=== PATIENT | male | born 1955 | race Caucasian/White ===

== ENCOUNTER 2016-02-22 09:12 | Outpatient (CLI) | payer BC, OTHER | END 2016-02-22 09:13 | disposition home or self-care (01) | DX: G47.30 Sleep apnea, unspecified (principal); G47.00 Insomnia, unspecified ==

== ENCOUNTER 2016-03-29 11:58 | Outpatient (CLI) | payer BC, OTHER | END 2016-03-29 11:59 | disposition home or self-care (01) | DX: E11.65 Type 2 diabetes mellitus with hyperglycemia (principal); Z12.5 Encounter for screening for malignant neoplasm of prostate; I26.99 Other pulmonary embolism without acute cor pulmonale ==

== ENCOUNTER 2016-08-01 08:19 | Outpatient (CLI) | payer BC, OTHER ==
[2016-08-01 13:14] LABS: CALCIUM 9.5 mg/dL (8.5-10.3); POTASSIUM 4.3 mmol/L (3.5-5.0)
[2016-08-01 13:23] LABS: HEMOGLOBIN A1C 1.17 g/dL
== END 2016-08-01 23:59 ==
LOC: LAB.WCP 08:19
PROVIDERS: ATTEND Family Medicine
DX: E11.65 Type 2 diabetes mellitus with hyperglycemia (principal)
CPT/HCPCS: 36415; 80048; 82043; 83036

== ENCOUNTER 2016-09-21 08:00 | Outpatient (CLI) | payer BC, OTHER | END 2016-09-21 08:01 | disposition home or self-care (01) | LOC: LAB.R 08:00 | PROVIDERS: ATTEND Surgery | DX: R19.7 Diarrhea, unspecified (principal) | CPT/HCPCS: 83630; 87045; 87046; 87077; 87493 ==

== ENCOUNTER 2016-10-23 07:18 | Day surgery (SDC) | payer BC, OTHER ==
[2016-10-23] MEDS ORDERED: LACTATED RINGERS 1,000 ML IV ONE (07:31)
[2016-10-23] MEDS ORDERED: MIDAZOLAM 2 MG/2 ML VIAL IVP ONE (08:30)
[2016-10-23] MEDS ORDERED: fentaNYL 100 MCG/2 ML VIAL IVP ONE (08:30)
[2016-10-23 09:52] VITALS: BP 137/74
== END 2016-10-23 07:19 | disposition home or self-care (01) ==
LOC: SDS 07:18
PROVIDERS: ATTEND Surgery
PROC: 0DBP8ZX Excision of Rectum, Via Natural or Artificial Opening Endoscopic, Diagnostic (ICD-10-PCS; 2016-10-23)
PROC: 0DBL8ZX Excision of Transverse Colon, Via Natural or Artificial Opening Endoscopic, Diagnostic (ICD-10-PCS; principal; 2016-10-23 08:30)
DX: R19.7 Diarrhea, unspecified (principal); D12.3 Benign neoplasm of transverse colon; D12.4 Benign neoplasm of descending colon; K62.1 Rectal polyp; K64.8 Other hemorrhoids; E11.9 Type 2 diabetes mellitus without complications; Z87.891 Personal history of nicotine dependence; Z79.84 Long term (current) use of oral hypoglycemic drugs
CPT/HCPCS: 45380; 45384; J7120

== ENCOUNTER 2016-11-05 10:28 | Outpatient (CLI) | payer BC, OTHER ==
[2016-11-05 14:10] LABS: BASOPHILS % (AUTO) 0.5 %; EOSINOPHILS # (AUTO) 0.1 10^3/uL (0.0-0.7); EOSINOPHILS % (AUTO) 2.2 %; HCT - HEMATOCRIT 40.2 % (42.0-52.0); HGB - HEMOGLOBIN 13.7 g/dL (14.0-18.0); LYMPHOCYTES # (AUTO) 1.4 10^3/uL (1.5-3.5); LYMPHOCYTES % (AUTO) 24.9 %; MEAN CORPUSCULAR HEMOGLOBIN 29.1 pg (27.0-31.0); MEAN CORPUSCULAR VOLUME 85.5 fL (80.0-94.0); MEAN PLATELET VOLUME 8.3 fL (7.4-11.4); MONOCYTES # (AUTO) 0.5 10^3/uL (0.0-1.0); MONOCYTES % (AUTO) 8.1 %; NEUTROPHILS # (AUTO) 3.7 10^3/uL (1.5-6.6); NEUTROPHILS % (AUTO) 64.3 %; NUCLEATED RED BLOOD CELLS AUTO 0.1 /100WBC; RED CELL DISTRIBUTION WIDTH 13.5 % (12.0-15.0); UNCORRECTED WHITE BLOOD COUNT 5.7 x10^3/uL; WHITE BLOOD COUNT 5.7 x10^3/uL (4.8-10.8)
[2016-11-05 14:37] LABS: ALBUMIN/GLOBULIN RATIO 1.4 (1.0-2.2); BILIRUBIN,TOTAL 0.7 mg/dL (0.2-1.0); BUN - BLOOD UREA NITROGEN 20 mg/dL (6-20); CALCIUM 9.1 mg/dL (8.5-10.3); CARBON DIOXIDE - CO2 27 mmol/L (21-32); CHLORIDE 102 mmol/L (101-111); CHOL/HDL RATIO 4.2 (<5.0); CHOLESTEROL 147 mg/dL; CREATININE 1.1 mg/dL (0.6-1.2); GFR - MDRD 68 (>89); GLUCOSE 183 mg/dL (70-100); HDL CHOLESTEROL 35 mg/dL; LDL/HDL RATIO 2.5 (<3.6); POTASSIUM 4.3 mmol/L (3.5-5.0); SODIUM 134 mmol/L (135-145); TRIGLYCERIDES 118 mg/dL; VLDL CHOLESTEROL 24 mg/dL
== END 2016-11-05 10:29 | disposition home or self-care (01) ==
LOC: LAB.WCP 10:28
PROVIDERS: ATTEND Family Medicine
DX: E11.65 Type 2 diabetes mellitus with hyperglycemia (principal)
CPT/HCPCS: 36415; 80053; 80061; 83036; 85025

== ENCOUNTER 2017-03-11 08:00 | Outpatient (CLI) | payer BC, OTHER ==
[2017-03-11 12:49] LABS: ALBUMIN 4.3 g/dL (3.2-5.5); ALBUMIN/GLOBULIN RATIO 1.5 (1.0-2.2); BILIRUBIN,TOTAL 0.7 mg/dL (0.2-1.0); CALCIUM 9.3 mg/dL (8.5-10.3); CREATININE 1.1 mg/dL (0.6-1.2); TOTAL PROTEIN 7.1 g/dL (6.7-8.2)
[2017-03-11 13:03] LABS: HB2 TOTAL 15.9 g/dL; HEMOGLOBIN A1C 1.02 g/dL
== END 2017-03-11 08:01 | disposition home or self-care (01) ==
LOC: LAB.WCP 08:00
PROVIDERS: ATTEND Family Medicine
DX: E11.65 Type 2 diabetes mellitus with hyperglycemia (principal)
CPT/HCPCS: 36415; 80053; 82043; 83036

== ENCOUNTER 2017-08-10 14:42 | Emergency (ER) | payer BC, OTHER ==
[2017-08-10] MEDS ORDERED: IOPAMIDOL-300 100 ML VIAL IVP ONE ×2 (14:43→18:54)
--- NOTE | 2017-08-10 15:05 | ED Physician Documentation ---
PD HPI CHEST PAIN - Stated complaint Stated Complaint: LIGHT HEADNESS/HEAVY ARMS/NAUSEA - Chief complaint Chief Complaint: Cardiac - History obtained from History obtained from: Patient, Family - History of Present Illness Timing - onset: Today (61-year-old gentleman with history of PE couple of years ago, he was on anticoagulation for I think 6 months and he has diabetes. He had a normal morning although did not eat well, cupcakes and M&Ms. Around 2:00 he suddenly felt like his head was full of thighs and he had orthostatic type dizziness. There was no chest pain or trouble breathing, although he told the nurse he felt like his right shoulder was tight. To me he says it just feels funny. It is not painful. He says some of the symptoms are reminiscent of his prior PE, but he definitely had chest pain then which he does not now. There is no pedal edema or calf pain. No urinary complaints or trouble with bowel movements.) Review of Systems Constitutional: reports: Fatigue. denies: Fever, Chills Nose: denies: Rhinorrhea / runny nose, Congestion Throat: denies: Sore throat Cardiac: denies: Chest pain / pressure, Palpitations, Pedal edema, Calf pain Respiratory: denies: Dyspnea, Cough, Hemoptysis, Wheezing PD PAST MEDICAL HISTORY - Past Medical History Cardiovascular: Hypertension, High cholesterol Respiratory: None Endocrine/Autoimmune: Type 2 diabetes GI: None : Benign prostate hypertrophy, Kidney stones HEENT: Chronic vision loss, Chronic hearing loss Psych: Post traumatic stress disorder Musculoskeletal: Osteoarthritis, Chronic back pain Derm: None - Past Surgical History Past Surgical History: Yes General: Hiatal hernia repair Ortho: Arthroscopic surgery, Spine surgery, Other - Present Medications Home Medications: Ambulatory Orders Medication Instructions Recorded Confirmed Insulin Aspart [NovoLOG] 18 unit SQ BID 10/22/16 10/22/16 Insulin Glargine [Lantus Solostar] 30 unit SUBQ BID 10/22/16 10/22/16 Lisinopril 5 mg PO DAILY 10/22/16 10/22/16 Simvastatin 20 mg PO DAILY 10/22/16 10/22/16 Trazodone HCl 200 mg PO DAILY PM 10/22/16 10/22/16 - Allergies Allergies/Adverse Reactions: Allergies Allergy/AdvReac Type Severity Reaction Status Date / Time No Known Drug Allergies Allergy Verified 09/18/15 07:21 - Social History Does the pt smoke?: No Smoking Status: Never smoker Does the pt drink ETOH?: No Does the pt have substance abuse?: No - Family History Family history: reports: Non contributory - Immunizations Immunizations are current?: Yes PD ED PE NORMAL - Vitals Vital signs reviewed: Yes - General General: Alert and oriented X 3, No acute distress - HEENT HEENT: PERRL, EOMI - Neck Neck: Supple, no meningeal sign, No bony TTP - Cardiac Cardiac: RRR, No murmur, Strong equal pulses (And equal upper extremity blood pressures) - Respiratory Respiratory: No respiratory distress, Clear bilaterally - Abdomen Abdomen: Non tender - Extremities Extremities: No edema, No calf tenderness / cord - Neuro Neuro: Alert and oriented X 3, Normal speech - Psych Psych: Normal mood, Normal affect Results - Vitals Vitals: Vital Signs - 24 hr 08/10/17 14:47 Temperature 36 C L Heart Rate 69 Respiratory 18 Rate Blood Pressure 170/111 H O2 Saturation 98 Oxygen O2 Source Room air - EKG (time done) 1455 Rate: Rate (enter#) (65) Rhythm: NSR Reliance: Normal Intervals: Normal CO QRS: Normal Ischemia: Non specific changes (Early R-wave progression without other ST/T changes) Computer interpretation: Agree with computer - Labs Labs: Laboratory Tests 08/10/17 08/10/17 08/10/17 15:10 15:10 15:10 WBC 6.3 RBC 4.82 Hgb 14.2 Hct 42.7 MCV 88.5 MCH 29.5 MCHC 33.4 RDW 13.7 Plt Count 183 MPV 7.8 Neut # (Auto) 4.1 Lymph # (Auto) 1.4 L [place] # (Auto) 0.6 Eos # (Auto) 0.2 Baso # (Auto) 0.0 Absolute Nucleated RBC 0.00 Nucleated RBC % 0.0 Sodium 138 Potassium 4.2 Chloride 101 Carbon Dioxide 31 Anion Gap 6.0 BUN 19 Creatinine 1.1 Estimated GFR (MDRD) 68 L Glucose 170 H Calcium 9.4 Total Bilirubin 0.6 AST 19 ALT 32 Alkaline Phosphatase 70 Troponin I < 0.04 Total Protein 7.2 Albumin 4.3 Globulin 2.9 Albumin/Globulin Ratio 1.5 Lipase 19 L - Rads (name of study) Ct PA Radiology: EMP read contemporaneously (negative) PD MEDICAL DECISION MAKING - ED course ED course: 61-year-old gentleman with nonspecific dizziness without chest pain today, his major comorbidity is a history of pulmonary embolism, not currently anticoagulated. His diagnostics here are normal with a nonischemic EKG, negative troponin, and negative CT pulmonary angiogram. He does have modest hyperglycemia in the setting of known diabetes. He was feeling better here ambulated without difficulty. There is no ongoing chest pain or trouble breathing. - Sepsis Event Vital Signs: Vital Signs - 24 hr 08/10/17 14:47 Temperature 36 C L Heart Rate 69 Respiratory 18 Rate Blood Pressure 170/111 H O2 Saturation 98 Oxygen O2 Source Room air Departure - Departure Disposition: 01 Home, Self Care Clinical Impression: Dizziness, History of pulmonary embolism Diabetes mellitus Qualifiers: Diabetes mellitus type: type 2 Diabetes mellitus fpc insulin use: with fpc use Diabetes mellitus complication status: with hyperglycemia Qualified Code(s): E11.65 - Type 2 diabetes mellitus with hyperglycemia; Z79.4 - residential (current) use of insulin; Z79.4 - termite control technician (current) use of insulin ; Z79.4 - residential (current) use of insulin; Z79.4 - termite control technician (current) use of insulin Hypertension Qualifiers: Hypertension type: essential hypertension Qualified Code(s): I10 - Essential ( primary) hypertension Condition: Good Record reviewed to determine appropriate education?: Yes Instructions: ED Dizziness UKO Comments: Call your doctor to arrange a follow-up appointment, make the next available appointment. In the interim, return anytime if worse or if new symptoms develop.
[2017-08-10 15:37] LABS: BASOPHILS % (AUTO) 0.3 %; EOSINOPHILS # (AUTO) 0.2 10^3/uL (0.0-0.7); EOSINOPHILS % (AUTO) 2.4 %; HGB - HEMOGLOBIN 14.2 g/dL (14.0-18.0); LYMPHOCYTES # (AUTO) 1.4 10^3/uL (1.5-3.5); LYMPHOCYTES % (AUTO) 22.9 %; MEAN CORPUSCULAR HEMOGLOBIN 29.5 pg (27.0-31.0); MEAN CORPUSCULAR HGB CONC 33.4 g/dL (32.0-36.0); MEAN CORPUSCULAR VOLUME 88.5 fL (80.0-94.0); MEAN PLATELET VOLUME 7.8 fL (7.4-11.4); MONOCYTES # (AUTO) 0.6 10^3/uL (0.0-1.0); MONOCYTES % (AUTO) 9.2 %; NEUTROPHILS # (AUTO) 4.1 10^3/uL (1.5-6.6); NEUTROPHILS % (AUTO) 65.2 %; PLT - PLATELET COUNT 183 10^3/uL (130-450); RED BLOOD COUNT 4.82 10^6/uL (4.70-6.10); RED CELL DISTRIBUTION WIDTH 13.7 % (12.0-15.0); WHITE BLOOD COUNT 6.3 x10^3/uL (4.8-10.8)
[2017-08-10 15:43] LABS: ALBUMIN 4.3 g/dL (3.2-5.5); ALBUMIN/GLOBULIN RATIO 1.5 (1.0-2.2); BILIRUBIN,TOTAL 0.6 mg/dL (0.2-1.0); CALCIUM 9.4 mg/dL (8.5-10.3); CREATININE 1.1 mg/dL (0.6-1.2); TOTAL PROTEIN 7.2 g/dL (6.7-8.2)
[2017-08-10] MEDS ORDERED: IOPAMIDOL-300 100 ML VIAL ONE (15:58)
--- NOTE | 2017-08-10 16:38 | CT Report ---
Procedure Date: 08/10/2017 Accession Number: [id number] / [id number] Procedure: CT - Chest Angio (PE) CPT Code: FULL RESULT: EXAM: CT ANGIOGRAM CHEST EXAM DATE: 08/10/2017 04:06 PM. CLINICAL HISTORY: Dizziness. COMPARISON: CHEST ANGIO 09/18/2015. TECHNIQUE: Routine helical imaging was performed through the chest in the pulmonary arterial phase. IV Contrast: ISOVUE 300 80mL. Reconstructions: Coronal 3-D MIP reconstructions.Sagittal and coronal. In accordance with CT protocol optimization, one or more of the following dose reduction techniques were utilized for this exam: automated exposure control, adjustment of mA and/or KV based on patient size, or use of iterative reconstructive technique. FINDINGS: Pulmonary Arteries: Diagnostic quality: Adequate through the segmental arteries. No evidence for acute or chronic pulmonary emboli. RV/LV is within normal limits. There is no interventricular septal bowing. There is no reflux of contrast material in the IVC. Lungs/Pleura: No consolidation, nodules, or edema. No effusions or pneumothorax. Mediastinum: Normal. No cardiac enlargement or adenopathy. Thoracic Aorta: Unremarkable. Upper Abdomen: Unremarkable. Other: None. IMPRESSION: Negative pulmonary CT angiogram. No pulmonary emboli. RAD[facility]
[2017-08-10 16:55] VITALS: BP 103/91
== END 2017-08-10 16:55 | disposition home or self-care (01) ==
LOC: ED 14:42
DX: R42 Dizziness and giddiness (principal); Z86.711 Personal history of pulmonary embolism; E11.65 Type 2 diabetes mellitus with hyperglycemia; I10 Essential (primary) hypertension; Z79.4 Long term (current) use of insulin
CPT/HCPCS: 36415; 71275; 80053; 83690; 84484; 85025; 93005; 99283; 99284; Q9967

== ENCOUNTER 2017-08-22 08:00 | Outpatient (CLI) | payer BC, OTHER ==
[2017-08-22 12:53] LABS: HB2 TOTAL 15.1 g/dL; HEMOGLOBIN A1C 0.96 g/dL
[2017-08-22 13:00] LABS: CHOL/HDL RATIO 3.8 (<5.0); CHOLESTEROL 125 mg/dL; HDL CHOLESTEROL 33 mg/dL; LDL CHOLESTEROL,CALCULATED 72 mg/dL; LDL/HDL RATIO 2.2 (<3.6); VLDL CHOLESTEROL 20 mg/dL
== END 2017-08-22 08:01 | disposition home or self-care (01) ==
LOC: LAB.WCP 08:00
PROVIDERS: ATTEND Family Medicine
DX: E78.5 Hyperlipidemia, unspecified (principal); E11.65 Type 2 diabetes mellitus with hyperglycemia
CPT/HCPCS: 36415; 80061; 83036; 83721

== ENCOUNTER 2017-11-18 08:00 | Outpatient (CLI) | payer BC, OTHER ==
[2017-11-18 13:02] LABS: BASOPHILS % (AUTO) 0.6 %; EOSINOPHILS # (AUTO) 0.1 10^3/uL (0.0-0.7); EOSINOPHILS % (AUTO) 2.1 %; HGB - HEMOGLOBIN 14.2 g/dL (14.0-18.0); LYMPHOCYTES # (AUTO) 1.4 10^3/uL (1.5-3.5); LYMPHOCYTES % (AUTO) 23.8 %; MEAN CORPUSCULAR HGB CONC 34.8 g/dL (32.0-36.0); MEAN CORPUSCULAR VOLUME 86.2 fL (80.0-94.0); MEAN PLATELET VOLUME 8.2 fL (7.4-11.4); MONOCYTES # (AUTO) 0.5 10^3/uL (0.0-1.0); MONOCYTES % (AUTO) 8.8 %; NEUTROPHILS # (AUTO) 3.7 10^3/uL (1.5-6.6); NEUTROPHILS % (AUTO) 64.7 %; PLT - PLATELET COUNT 183 10^3/uL (130-450); RED BLOOD COUNT 4.75 10^6/uL (4.70-6.10); RED CELL DISTRIBUTION WIDTH 13.6 % (12.0-15.0); WHITE BLOOD COUNT 5.7 x10^3/uL (4.8-10.8)
[2017-11-18 13:21] LABS: ALBUMIN 4.3 g/dL (3.2-5.5); ALBUMIN/GLOBULIN RATIO 1.5 (1.0-2.2); BILIRUBIN,TOTAL 0.7 mg/dL (0.2-1.0); CREATININE 1.1 mg/dL (0.6-1.2); TOTAL PROTEIN 7.2 g/dL (6.7-8.2)
[2017-11-18 13:56] LABS: HB2 TOTAL 15.2 g/dL; HEMOGLOBIN A1C 0.78 g/dL; HEMOGLOBIN A1C % 6.8 % (4.6-6.2)
== END 2017-11-18 08:01 | disposition home or self-care (01) ==
LOC: LAB.WCP 08:00
PROVIDERS: ATTEND Family Medicine
DX: E11.65 Type 2 diabetes mellitus with hyperglycemia (principal)
CPT/HCPCS: 36415; 80053; 83036; 85025

== ENCOUNTER 2018-04-14 08:00 | Outpatient (CLI) | payer BC, OTHER ==
[2018-04-14 13:22] LABS: ALBUMIN 4.1 g/dL (3.2-5.5); ALBUMIN/GLOBULIN RATIO 1.4 (1.0-2.2); ALKALINE PHOSPHATASE 69 IU/L (42-121); ALT ALANINE AMINOTRANSFERASE 40 IU/L (10-60); AST ASPARTATE AMINOTRANSFERASE 23 IU/L (10-42); BILIRUBIN,TOTAL 0.9 mg/dL (0.2-1.0); BUN - BLOOD UREA NITROGEN 20 mg/dL (6-20); CHOLESTEROL 136 mg/dL; CREATININE 1.1 mg/dL (0.6-1.2); GFR - MDRD 68 (>89); GLUCOSE 160 mg/dL (70-100); HDL CHOLESTEROL 34 mg/dL; LDL CHOLESTEROL,CALCULATED 71 mg/dL; LDL/HDL RATIO 2.1 (<3.6); VLDL CHOLESTEROL 31 mg/dL
[2018-04-14 13:27] LABS: CARBON DIOXIDE - CO2 26 mmol/L (21-32); CHLORIDE 101 mmol/L (101-111); SODIUM 135 mmol/L (135-145)
[2018-04-14 13:33] LABS: BASOPHILS # (AUTO) 0.1 10^3/uL (0.0-0.1); BASOPHILS % (AUTO) 1.5 %; EOSINOPHILS # (AUTO) 0.2 10^3/uL (0.0-0.7); EOSINOPHILS % (AUTO) 2.9 %; HGB - HEMOGLOBIN 14.1 g/dL (14.0-18.0); LYMPHOCYTES # (AUTO) 1.5 10^3/uL (1.5-3.5); LYMPHOCYTES % (AUTO) 27.9 %; MEAN CORPUSCULAR HEMOGLOBIN 29.5 pg (27.0-31.0); MEAN CORPUSCULAR HGB CONC 34.1 g/dL (32.0-36.0); MEAN CORPUSCULAR VOLUME 86.6 fL (80.0-94.0); MEAN PLATELET VOLUME 8.5 fL (7.4-11.4); MONOCYTES # (AUTO) 0.5 10^3/uL (0.0-1.0); MONOCYTES % (AUTO) 9.2 %; NEUTROPHILS # (AUTO) 3.2 10^3/uL (1.5-6.6); NEUTROPHILS % (AUTO) 58.5 %; PLT - PLATELET COUNT 193 10^3/uL (130-450); RED BLOOD COUNT 4.77 10^6/uL (4.70-6.10); RED CELL DISTRIBUTION WIDTH 13.3 % (12.0-15.0); WHITE BLOOD COUNT 5.4 x10^3/uL (4.8-10.8)
[2018-04-14 14:20] LABS: HB2 TOTAL 15.6 g/dL; HEMOGLOBIN A1C 1.1 g/dL; HEMOGLOBIN A1C % 8.6 % (4.6-6.2)
== END 2018-04-14 23:59 | disposition home or self-care (01) ==
LOC: LAB.WCP 08:00
PROVIDERS: ATTEND Family Medicine
DX: E11.65 Type 2 diabetes mellitus with hyperglycemia (principal); Z12.5 Encounter for screening for malignant neoplasm of prostate
CPT/HCPCS: 36415; 80053; 80061; 82043; 83036; 83721; 84153; 85025

== ENCOUNTER 2018-07-15 09:44 | Outpatient (CLI) | payer BC, OTHER ==
[2018-07-15 12:43] LABS: CALCIUM 9.4 mg/dL (8.5-10.3); CREATININE 1.1 mg/dL (0.6-1.2)
[2018-07-15 12:50] LABS: HB2 TOTAL 15.1 g/dL; HEMOGLOBIN A1C 0.89 g/dL; HEMOGLOBIN A1C % 7.5 % (4.6-6.2)
== END 2018-07-15 09:45 | disposition home or self-care (01) ==
LOC: LAB.WCP 09:44
PROVIDERS: ATTEND Family Medicine
DX: E11.9 Type 2 diabetes mellitus without complications (principal)
CPT/HCPCS: 36415; 80048; 83036

== ENCOUNTER 2018-07-21 09:04 | Outpatient (CLI) | payer OTHER ==
--- NOTE | 2018-07-21 09:36 | XRAY Report ---
Reason: CHEST PAIN Procedure Date: 07/21/2018 Accession Number: [id number] / [id number] Procedure: WCP - Chest 2 View X-Ray CPT Code: 29169 FULL RESULT: EXAM: CHEST RADIOGRAPHY EXAM DATE: 07/21/2018 09:29 AM. CLINICAL HISTORY: CHEST PAIN. COMPARISON: CHEST 2 VIEW PA/LAT 06/15/2016 10:31 AM. TECHNIQUE: 2 views. FINDINGS: Lungs/Pleura: No focal opacities evident. No pleural effusion. No pneumothorax. Normal volumes. Mediastinum: Heart and mediastinal contours are unremarkable. Other: None. IMPRESSION: Normal 2-view chest radiography. [facility]
== END 2018-07-21 09:05 | disposition home or self-care (01) ==
LOC: DI.WCP 09:04
PROVIDERS: ATTEND Family Medicine
DX: R07.9 Chest pain, unspecified (principal); Z86.711 Personal history of pulmonary embolism
CPT/HCPCS: 36415; 71046; 85379

== ENCOUNTER 2018-07-21 09:30 | Outpatient (CLI) | payer OTHER | END 2018-07-21 09:31 | disposition home or self-care (01) | LOC: LAB.WCP 09:30 | PROVIDERS: ATTEND Family Medicine | DX: R07.9 Chest pain, unspecified (principal); Z86.711 Personal history of pulmonary embolism | CPT/HCPCS: 36415; 85379 ==

== ENCOUNTER 2018-08-27 11:17 | Outpatient (CLI) | payer BC, OTHER | END 2018-08-27 11:18 | disposition home or self-care (01) | LOC: DI 11:17 | PROVIDERS: ATTEND Family Medicine | DX: R07.9 Chest pain, unspecified (principal) | CPT/HCPCS: 93306 ==

== ENCOUNTER 2018-08-29 08:52 | Outpatient (CLI) | payer BC, OTHER ==
[2018-08-29 12:47] LABS: CALCIUM 9.6 mg/dL (8.5-10.3); CREATININE 1.1 mg/dL (0.6-1.2)
[2018-08-29 12:58] LABS: HB2 TOTAL 15.3 g/dL; HEMOGLOBIN A1C 0.82 g/dL; HEMOGLOBIN A1C % 7.1 % (4.6-6.2)
== END 2018-08-29 08:53 | disposition home or self-care (01) ==
LOC: LAB.WCP 08:52
PROVIDERS: ATTEND Family Medicine
DX: E11.9 Type 2 diabetes mellitus without complications (principal)
CPT/HCPCS: 36415; 80048; 83036

== ENCOUNTER 2018-10-28 08:00 | Outpatient (CLI) | payer BC, OTHER ==
[2018-10-28 12:50] LABS: ALBUMIN 4.1 g/dL (3.2-5.5); ALBUMIN/GLOBULIN RATIO 1.2 (1.0-2.2); BILIRUBIN,TOTAL 0.9 mg/dL (0.2-1.0); CALCIUM 9.3 mg/dL (8.5-10.3); CREATININE 1.1 mg/dL (0.6-1.2); TOTAL PROTEIN 7.4 g/dL (6.7-8.2)
[2018-10-28 12:51] LABS: HB2 TOTAL 14.8 g/dL; HEMOGLOBIN A1C 0.72 g/dL; HEMOGLOBIN A1C % 6.6 % (4.6-6.2)
== END 2018-10-28 23:59 | disposition home or self-care (01) ==
LOC: LAB.WCP 08:00
PROVIDERS: ATTEND Family Medicine
DX: E11.9 Type 2 diabetes mellitus without complications (principal)
CPT/HCPCS: 36415; 80053; 83036

== ENCOUNTER 2019-12-21 09:15 | Outpatient (CLI) | payer BC, OTHER ==
[2019-12-21 12:53] LABS: BASOPHILS % (AUTO) 0.7 %; EOSINOPHILS # (AUTO) 0.3 10^3/uL (0.0-0.7); EOSINOPHILS % (AUTO) 4.1 %; HGB - HEMOGLOBIN 13.9 g/dL (14.0-18.0); LYMPHOCYTES # (AUTO) 1.3 10^3/uL (1.5-3.5); MEAN CORPUSCULAR HEMOGLOBIN 29.6 pg (27.0-31.0); MEAN CORPUSCULAR HGB CONC 32.5 g/dL (32.0-36.0); MEAN CORPUSCULAR VOLUME 91.3 fL (80.0-94.0); MEAN PLATELET VOLUME 10.6 fL (7.4-11.4); MONOCYTES # (AUTO) 0.5 10^3/uL (0.0-1.0); MONOCYTES % (AUTO) 7.9 %; NEUTROPHILS # (AUTO) 3.9 10^3/uL (1.5-6.6); PLT - PLATELET COUNT 200 10^3/uL (130-450); RED BLOOD COUNT 4.69 10^6/uL (4.70-6.10); RED CELL DISTRIBUTION WIDTH 12.8 % (12.0-15.0); WHITE BLOOD COUNT 6.1 x10^3/uL (4.8-10.8)
[2019-12-21 13:08] LABS: ALBUMIN 4.1 g/dL (3.2-5.5); ALBUMIN/GLOBULIN RATIO 1.4 (1.0-2.2); ALKALINE PHOSPHATASE 65 IU/L (42-121); ALT ALANINE AMINOTRANSFERASE 39 IU/L (10-60); AST ASPARTATE AMINOTRANSFERASE 21 IU/L (10-42); BILIRUBIN,TOTAL 0.9 mg/dL (0.2-1.0); BUN - BLOOD UREA NITROGEN 21 mg/dL (6-20); CALCIUM 9.1 mg/dL (8.5-10.3); CARBON DIOXIDE - CO2 27 mmol/L (21-32); CHLORIDE 97 mmol/L (101-111); CHOL/HDL RATIO 4.5 (<5.0); CHOLESTEROL 138 mg/dL; CREATININE 1.3 mg/dL (0.6-1.2); GLUCOSE 136 mg/dL (70-100); HDL CHOLESTEROL 31 mg/dL; LDL CHOLESTEROL,CALCULATED 75 mg/dL; LDL/HDL RATIO 2.4 (<3.6); SODIUM 136 mmol/L (135-145); TOTAL PROTEIN 7.1 g/dL (6.7-8.2); VLDL CHOLESTEROL 32 mg/dL
[2019-12-21 13:42] LABS: HEMOGLOBIN A1c% 7.7 % (4.27-6.07)
[2019-12-21 13:43] LABS: CREATININE,URINE 308.7 mg/dL; MICROALBUM/CREATININE RATIO,UR 15.2 ug/mg (<30.0); MICROALBUMIN,URINE 4.7 mg/dL (0-300.0)
== END 2019-12-21 23:59 | disposition home or self-care (01) ==
LOC: LAB.WCP 09:15
PROVIDERS: ATTEND Family Medicine
DX: E11.9 Type 2 diabetes mellitus without complications (principal); Z12.5 Encounter for screening for malignant neoplasm of prostate
CPT/HCPCS: 36415; 80053; 80061; 82043; 82570; 83036; 83721; 84153; 84443; 85025

== ENCOUNTER 2020-04-21 09:14 | Outpatient (CLI) | payer BC, OTHER ==
[2020-04-21 14:11] LABS: BASOPHILS % (AUTO) 0.6 %; EOSINOPHILS # (AUTO) 0.2 10^3/uL (0.0-0.7); EOSINOPHILS % (AUTO) 2.8 %; HCT - HEMATOCRIT 45.3 % (42.0-52.0); HGB - HEMOGLOBIN 14.6 g/dL (14.0-18.0); LYMPHOCYTES # (AUTO) 1.5 10^3/uL (1.5-3.5); MEAN CORPUSCULAR HEMOGLOBIN 28.7 pg (27.0-31.0); MEAN CORPUSCULAR HGB CONC 32.2 g/dL (32.0-36.0); MEAN CORPUSCULAR VOLUME 89.2 fL (80.0-94.0); MEAN PLATELET VOLUME 10.6 fL (7.4-11.4); MONOCYTES # (AUTO) 0.6 10^3/uL (0.0-1.0); MONOCYTES % (AUTO) 8.6 %; NEUTROPHILS # (AUTO) 4.1 10^3/uL (1.5-6.6); NEUTROPHILS % (AUTO) 64.7 %; PLT - PLATELET COUNT 204 10^3/uL (130-450); RED BLOOD COUNT 5.08 10^6/uL (4.70-6.10); RED CELL DISTRIBUTION WIDTH 12.5 % (12.0-15.0); WHITE BLOOD COUNT 6.4 x10^3/uL (4.8-10.8)
[2020-04-21 14:45] LABS: ESTIMATED AVERAGE GLUCOSE 197 mg/dL (70-100); HEMOGLOBIN A1c% 8.5 % (4.27-6.07)
[2020-04-21 14:49] LABS: ALBUMIN 4.3 g/dL (3.2-5.5); ALBUMIN/GLOBULIN RATIO 1.2 (1.0-2.2); ALKALINE PHOSPHATASE 82 IU/L (42-121); ALT ALANINE AMINOTRANSFERASE 39 IU/L (10-60); AST ASPARTATE AMINOTRANSFERASE 23 IU/L (10-42); BILIRUBIN,TOTAL 0.8 mg/dL (0.2-1.0); BUN - BLOOD UREA NITROGEN 19 mg/dL (6-20); CALCIUM 9.5 mg/dL (8.5-10.3); CARBON DIOXIDE - CO2 28 mmol/L (21-32); CHLORIDE 96 mmol/L (101-111); CHOL/HDL RATIO 5.3 (<5.0); CHOLESTEROL 191 mg/dL; CREATININE 1.1 mg/dL (0.6-1.2); GFR - MDRD 67 (>89); GLUCOSE 247 mg/dL (70-100); HDL CHOLESTEROL 36 mg/dL; LDL CHOLESTEROL,CALCULATED 115 mg/dL; LDL/HDL RATIO 3.2 (<3.6); POTASSIUM 4.1 mmol/L (3.5-5.0); SODIUM 135 mmol/L (135-145); TOTAL PROTEIN 7.8 g/dL (6.7-8.2); TRIGLYCERIDES 200 mg/dL; VLDL CHOLESTEROL 40 mg/dL
[2020-04-21 14:50] LABS: CREATININE,URINE 321.1 mg/dL; MICROALBUM/CREATININE RATIO,UR 16.5 ug/mg (<30.0); MICROALBUMIN,URINE 5.3 mg/dL (0-300.0)
== END 2020-04-21 09:15 | disposition home or self-care (01) ==
LOC: LAB.N 09:14
PROVIDERS: ATTEND Family Medicine
DX: E11.9 Type 2 diabetes mellitus without complications (principal)
CPT/HCPCS: 36415; 80053; 80061; 82043; 82570; 83036; 83721; 85025

== ENCOUNTER 2020-05-20 12:23 | Outpatient (CLI) | payer BC, OTHER ==
--- NOTE | 2020-05-20 14:07 | XRAY Report ---
PROCEDURE: Foot 3 View LT INDICATIONS: GLF YESTERDAY TECHNIQUE: 3 views of the foot were acquired. COMPARISON: None FINDINGS: Bones: Mildly displaced fracture of proximal aspect of the distal phalanx of the first digit with art icular surface extension to the interphalangeal joint of the first digit. No suspicious bony lesions. Mild periarticular osteophyte formation at the first metatarsophalangeal joint, as well as the inte rphalangeal joints of the digits. Soft tissues: No tibiotalar joint effusion. Achilles tendon appears normal. IMPRESSION: First digit fracture with articular surface extension. Reviewed by: Lupe Fraire MD on 05/20/2020 2:06 PM PDT Approved by: Lupe Fraire MD on 05/20/2020 2:06 PM PDT Station ID: [id number]
--- NOTE | 2020-05-20 14:10 | XRAY Report ---
PROCEDURE: Nasal Bones INDICATIONS: GLF YESTERDAY TECHNIQUE: 2 views of the nasal bones acquired. COMPARISON: None FINDINGS: Bones: No fractures or dislocations. Nasal septum is midline. Normal nasociliary nerve grooves are noted. Soft tissues: No suspicious soft tissue calcifications. IMPRESSION: No acute fracture. No osseous lesion. If symptoms and/or clinical suspicion for pathology continue, f urther assessment with repeat plain films, or advanced imaging (e.g., CT, MRI, or bone scan) is recom mended for further assessment. Reviewed by: Lupe Fraire MD on 05/20/2020 2:09 PM PDT Approved by: Lupe Fraire MD on 05/20/2020 2:09 PM PDT Station ID: [id number]
--- NOTE | 2020-05-20 14:10 | XRAY Report ---
PROCEDURE: Knee 4 View RT INDICATIONS: GLF YESTERDAY TECHNIQUE: 4 views of the right knee(s) were acquired. COMPARISON: None. FINDINGS: Bones: No fractures or dislocations. No suspicious bony lesions. Moderate tricompartment periartic ular osteophyte formation. Soft tissues: No joint effusion. No suspicious soft tissue calcifications. IMPRESSION: Osteoarthritis. No acute fracture. No osseous lesion. If symptoms and/or clinical suspic ion for pathology continue, further assessment with repeat plain films, or advanced imaging (e.g., CT , MRI, or bone scan) is recommended for further assessment. Reviewed by: Lupe Fraire MD on 05/20/2020 2:09 PM PDT Approved by: Lupe Fraire MD on 05/20/2020 2:09 PM PDT Station ID: [id number]
== END 2020-05-20 12:24 | disposition home or self-care (01) ==
LOC: DI.N 12:23
PROVIDERS: ATTEND Nurse Practitioner
DX: S92.412A Displaced fracture of proximal phalanx of left great toe, initial encounter for closed fracture (principal); W19.XXXA Unspecified fall, initial encounter; M17.11 Unilateral primary osteoarthritis, right knee

== ENCOUNTER 2020-05-23 07:00 | Outpatient (CLI) | payer BC, OTHER ==
--- NOTE | 2020-05-23 12:25 | XRAY Report ---
PROCEDURE: Shoulder 3 View RT INDICATIONS: CONTUSION OF R SHOULDER TECHNIQUE: 3 views of the shoulder were acquired. COMPARISON: None. FINDINGS: Bones: No fractures or dislocations. Moderate to severe acromioclavicular joint osteoarthritis and moderate glenohumeral joint osteoarthritis is seen. No suspicious bony lesions. Visualized ribs appe ar intact. Soft tissues: There is suggestion of calcific tendinitis involving distal supraspinatus with small cu rvilinear calcifications adjacent to greater tuberosity of humeral head. IMPRESSION: No acute shoulder fracture or dislocation. Moderate to severe acromioclavicular joint os teoarthritis and moderate glenohumeral joint osteoarthritis. Suggestion of calcific tendinitis. Reviewed by: Wild Lang MD on 05/23/2020 11:24 AM [facility] Approved by: Wild Lang MD on 05/23/2020 11:24 AM [facility] Station ID: [id number]
== END 2020-05-23 23:59 | disposition home or self-care (01) ==
LOC: DI.N 07:00
PROVIDERS: ATTEND Physician Assistant Medical
DX: M19.011 Primary osteoarthritis, right shoulder (principal)

== ENCOUNTER 2020-07-16 10:02 | Outpatient (CLI) | payer BC, OTHER | END 2020-07-16 10:03 | disposition home or self-care (01) | LOC: LAB.N 10:02 | PROVIDERS: ATTEND Family Medicine | DX: Z53.9 Procedure and treatment not carried out, unspecified reason (principal); E11.9 Type 2 diabetes mellitus without complications ==

== ENCOUNTER 2020-08-28 18:46 | Outpatient (CLI) | payer BC, OTHER | END 2020-08-28 18:47 | disposition EMS.NT | LOC: EMS 18:46 | DX: Z03.89 Encounter for observation for other suspected diseases and conditions ruled out (principal) ==

== ENCOUNTER 2020-09-22 04:33 | Outpatient (CLI) | payer BC, OTHER | END 2020-09-22 04:34 | disposition EMS.NT | LOC: EMS 04:33 | DX: Z03.89 Encounter for observation for other suspected diseases and conditions ruled out (principal) ==

== ENCOUNTER 2020-09-24 18:35 | Outpatient (CLI) | payer BC, OTHER | END 2020-09-24 18:36 | disposition EMS.NT | LOC: EMS 18:35 | DX: Z03.89 Encounter for observation for other suspected diseases and conditions ruled out (principal) ==

== ENCOUNTER 2020-09-24 19:39 | Emergency (ER) | payer BC, OTHER ==
[2020-09-24 20:06] LABS: BASOPHILS % (AUTO) 0.5 %; EOSINOPHILS # (AUTO) 0.2 10^3/uL (0.0-0.7); EOSINOPHILS % (AUTO) 3.2 %; HCT - HEMATOCRIT 39.3 % (42.0-52.0); HGB - HEMOGLOBIN 12.5 g/dL (14.0-18.0); LYMPHOCYTES # (AUTO) 1.6 10^3/uL (1.5-3.5); LYMPHOCYTES % (AUTO) 25.9 %; MEAN CORPUSCULAR HEMOGLOBIN 28.8 pg (27.0-31.0); MEAN CORPUSCULAR HGB CONC 31.8 g/dL (32.0-36.0); MEAN CORPUSCULAR VOLUME 90.6 fL (80.0-94.0); MEAN PLATELET VOLUME 9.6 fL (7.4-11.4); MONOCYTES # (AUTO) 0.6 10^3/uL (0.0-1.0); NEUTROPHILS # (AUTO) 3.8 10^3/uL (1.5-6.6); NEUTROPHILS % (AUTO) 61.2 %; PLT - PLATELET COUNT 178 10^3/uL (130-450); RED BLOOD COUNT 4.34 10^6/uL (4.70-6.10); RED CELL DISTRIBUTION WIDTH 13.3 % (12.0-15.0); WHITE BLOOD COUNT 6.2 x10^3/uL (4.8-10.8)
[2020-09-24 20:18] LABS: ALBUMIN 3.9 g/dL (3.2-5.5); ALBUMIN/GLOBULIN RATIO 1.2 (1.0-2.2); ALKALINE PHOSPHATASE 70 IU/L (42-121); ALT ALANINE AMINOTRANSFERASE 30 IU/L (10-60); AST ASPARTATE AMINOTRANSFERASE 19 IU/L (10-42); BILIRUBIN,TOTAL 0.7 mg/dL (0.2-1.0); BUN - BLOOD UREA NITROGEN 18 mg/dL (6-20); CALCIUM 9.2 mg/dL (8.5-10.3); CARBON DIOXIDE - CO2 26 mmol/L (21-32); CHLORIDE 103 mmol/L (101-111); ETOH - ETHANOL < 5.0 mg/dL; GFR - MDRD 75 (>89); GLUCOSE 191 mg/dL (70-100); POTASSIUM 4.1 mmol/L (3.5-5.0); SODIUM 140 mmol/L (135-145); TOTAL PROTEIN 7.2 g/dL (6.7-8.2)
--- NOTE | 2020-09-24 20:22 | ED Physician Documentation ---
History of Present Illness - Stated complaint Stated Complaint: MULTIPLE GLF - Chief complaint Chief Complaint: General - History obtained from History obtained from: Patient, Family - Additonal information Additional information: 64-year-old gentleman with history of ataxia, dementia has had problems with falls, maybe weekly in the past. He uses a walker. Over the last 4 days has had about daily falls and also new is that he cannot get himself up. He has a right rib injury. Review of Systems Ten Systems: 10 systems reviewed and negative Constitutional: reports: Reviewed and negative Ears: reports: Reviewed and negative Nose: reports: Reviewed and negative Throat: reports: Reviewed and negative Cardiac: reports: Reviewed and negative Respiratory: reports: Reviewed and negative PD PAST MEDICAL HISTORY - Past Medical History Past Medical History: Yes Cardiovascular: Hypertension, High cholesterol Respiratory: None Neuro: Dementia, Fainting Endocrine/Autoimmune: Type 2 diabetes GI: None : Benign prostate hypertrophy, Kidney stones HEENT: Chronic vision loss, Chronic hearing loss Psych: Depression, Anxiety, Post traumatic stress disorder Musculoskeletal: Osteoarthritis, Chronic back pain, Other Derm: None Other Past Medical History: Nueropathy - Past Surgical History Past Surgical History: Yes General: Hiatal hernia repair Ortho: Arthroscopic surgery, Spine surgery, Other - Present Medications Home Medications: Ambulatory Orders Medication Instructions Recorded Confirmed Insulin Aspart [NovoLOG] 18 unit SQ BID 10/22/16 10/22/16 Insulin Glargine [Lantus Solostar] 30 unit SUBQ BID 10/22/16 10/22/16 Simvastatin 20 mg PO DAILY 10/22/16 10/22/16 Trazodone HCl 200 mg PO DAILY PM 10/22/16 10/22/16 lisinopriL [Lisinopril] 5 mg PO DAILY 10/22/16 10/22/16 - Allergies Allergies/Adverse Reactions: Allergies Allergy/AdvReac Type Severity Reaction Status Date / Time No Known Drug Allergies Allergy Verified 09/24/20 19:42 - Social History Does the pt smoke?: No Smoking Status: Never smoker Does the pt drink ETOH?: Yes Does the pt have substance abuse?: No - Immunizations Immunizations are current?: Yes PD ED PE NORMAL - Vitals Vital signs reviewed: Yes - General General: Alert and oriented X 3, No acute distress - HEENT HEENT: PERRL, EOMI - Neck Neck: Supple, no meningeal sign, No bony TTP - Cardiac Cardiac: RRR, No murmur - Respiratory Respiratory: No respiratory distress, Clear bilaterally - Abdomen Abdomen: Non tender - Extremities Extremities: Other (Tender to the right upper posterior ribs laterally) - Neuro Neuro: Alert and oriented X 3, Normal speech, Other (He has nystagmus on horizontal gaze, also ataxia on [id number] and [id number] testing. It all seemed relatively symmetric.) - Psych Psych: Normal mood, Normal affect Results - Vitals Vitals: Vital Signs - 24 hr 09/24/20 19:43 Temperature 36.5 C Heart Rate 68 Respiratory 16 Rate Blood Pressure 150/60 H O2 Saturation 96 Oxygen O2 Source Room air - Labs Labs: Laboratory Tests 09/24/20 09/24/20 20:03 20:03 WBC 6.2 RBC 4.34 L Hgb 12.5 L Hct 39.3 L MCV 90.6 MCH 28.8 MCHC 31.8 L RDW 13.3 Plt Count 178 MPV 9.6 Neut # (Auto) 3.8 Lymph # (Auto) 1.6 [place] # (Auto) 0.6 Eos # (Auto) 0.2 Baso # (Auto) 0.0 Absolute Nucleated RBC 0.00 Nucleated RBC % 0.0 Sodium 140 Potassium 4.1 Chloride 103 Carbon Dioxide 26 Anion Gap 11.0 BUN 18 Creatinine 1.0 Estimated GFR (MDRD) 75 L Glucose 191 H Calcium 9.2 Total Bilirubin 0.7 AST 19 ALT 30 Alkaline Phosphatase 70 Total Protein 7.2 Albumin 3.9 Globulin 3.3 Albumin/Globulin Ratio 1.2 Ethyl Alcohol < 5.0 - Rads (name of study) Right ribs and PA chest x-ray Radiology: EMP read contemporaneously (normal) PD MEDICAL DECISION MAKING - ED course ED course: 64-year-old gentleman diagnosed previously with ataxia and dementia presents with increased falls. No clinical evidence of stroke. He injured his ribs but the x-ray was negative. CT concerning for normal pressure hydrocephalus. Discussed with patient and that I am not sure this was considered during his initial evaluation but probably deserves a mention at least to his neurologist and they understand. Departure - Departure Disposition: 01 Home, Self Care Clinical Impression: Frequent falls Condition: Good Record reviewed to determine appropriate education?: Yes Comments: As discussed, based on the CAT scan of your head I do wonder if you may have something called normal pressure hydrocephalus. This deserves reevaluation or at least consideration I think by your neurologist, you should call him for an appointment. Discussed the potential for normal pressure hydrocephalus. If it is there may be specific treatments available. Another option would be to follow-up with [facility], they have a specific adult hydrocephalus program. The phone number is [phone].
--- NOTE | 2020-09-24 20:58 | XRAY Report ---
PROCEDURE: Ribs w/PA Chest RT INDICATIONS: rib pain TECHNIQUE: 2 views of the right ribs were acquired, along with 2 AP views of the chest. COMPARISON: Chest radiographs 07/21/2018 FINDINGS: Surgical changes and devices: None. Bones and chest wall: No acute displaced rib fracture. No suspicious bony lesions. Overlying soft t issues appear unremarkable. Degenerative changes are seen at the acromioclavicular joint. Lungs and pleura: No pleural effusions or pneumothorax. Lungs appear clear. Mediastinum: Mediastinal contours appear normal. Heart size is normal. IMPRESSION: No acute displaced rib fracture. No pleural effusion or pneumothorax. Reviewed by: Merritt Ring MD on 09/24/2020 8:57 PM PDT Approved by: Merritt Ring MD on 09/24/2020 8:57 PM PDT Station ID: [id number]
[2020-09-24] MEDS ORDERED: IBUPROFEN 800 MG TABLET PO STA (21:03)
--- NOTE | 2020-09-24 21:11 | CT Report ---
PROCEDURE: HEAD WO INDICATIONS: falls TECHNIQUE: Noncontrast 4.5 mm thick angled axial sections acquired from the foramen magnum to the vertex. For r adiation dose reduction, the following was used: automated exposure control, adjustment of mA and/or kV according to patient size. COMPARISON: None. FINDINGS: Image quality: Excellent. CSF spaces: Basal cisterns are patent. No extra-axial fluid collections. Ventricles are symmetrica lly enlarged. Brain: No midline shift. No intracranial masses or hemorrhage. There is diffuse cerebral and cerebe llar volume loss. Hypodensities in the subcortical and periventricular white matter are most commonly seen secondary to chronic vascular ischemic changes. Skull and face: Calvarium and visualized facial bones are intact, without suspicious lesions. Sinuses: There is mucosal thickening in the left maxillary sinus. Partial opacifications of the ethmo id air cells are seen bilaterally. The remaining visualized paranasal sinuses are clear. There is par tial opacification of the right right mastoid air cells. Left mastoid air cells are clear. IMPRESSION: 1. No acute intracranial abnormality. 2. Diffuse cerebral and cerebellar volume loss, greater than expected for age. Ventricular enlargeme nt is most likely related to parenchymal volume loss, but normal pressure hydrocephalus is not exclud ed. 3. Chronic microvascular ischemic changes. Reviewed by: Merritt Ring MD on 09/24/2020 9:10 PM PDT Approved by: Merritt Ring MD on 09/24/2020 9:10 PM PDT Station ID: [id number]
[2020-09-24 21:56] VITALS: BP 149/66
== END 2020-09-24 21:56 | disposition home or self-care (01) ==
LOC: ED 19:39
DX: R07.81 Pleurodynia (principal); Z91.81 History of falling; I10 Essential (primary) hypertension; E11.9 Type 2 diabetes mellitus without complications; Z79.4 Long term (current) use of insulin; F03.90 Unspecified dementia, unspecified severity, without behavioral disturbance, psychotic disturbance, mood disturbance, and anxiety
CPT/HCPCS: 36415; 70450; 71101; 80053; 80320; 85025; 99283; 99284; A9270

== ENCOUNTER 2020-10-31 16:33 | Outpatient (CLI) | payer MEDICARE, OTHER ==
--- NOTE | 2020-10-31 17:58 | Ultrasound Report ---
PROCEDURE: Duplex Ext Veins Right INDICATIONS: RT LEG EDEMA TECHNIQUE: Real-time imaging, as well as color and pulse Doppler interrogation, were performed of the lower extr emity deep veins from the inguinal ligament to the popliteal fossa. COMPARISON: None. FINDINGS: The distal superficial femoral vein as well as calf veins are not well seen. This is felt to be secondary to edema. Fluid collection is noted along the anterolateral knee measuring approximat sandor 4.9 x 0.6 x 5.0 cm. The deep veins are normally compressible, and free of intraluminal thrombus. Color and pulse Doppler demonstrate normal phasic intraluminal flow. There is normal augmentation r esponse to distal compression maneuver. IMPRESSION: 1. No deep venous thrombosis with limited visualization as above. 2. Fluid collection along the anterolateral knee. This could represent tracking fluid from a Parnell's cyst. Other etiologies such as hematoma cannot be excluded. Reviewed by: Johana Ruggiero MD on 10/31/2020 5:57 PM PDT Approved by: Johana Ruggiero MD on 10/31/2020 5:57 PM PDT Station ID: [id number]
== END 2020-10-31 16:34 | disposition home or self-care (01) ==
LOC: DI 16:33
PROVIDERS: ATTEND Family Medicine
DX: R60.0 Localized edema (principal)

== ENCOUNTER 2020-11-01 08:00 | Outpatient (CLI) | payer MEDICARE, OTHER ==
[2020-11-01 18:43] LABS: FECAL OCCULT BLOOD (FIT) NEGATIVE (NEGATIVE)
== END 2020-11-01 23:59 | disposition home or self-care (01) ==
LOC: LAB.WCP 08:00
PROVIDERS: ATTEND Family Medicine
DX: D64.9 Anemia, unspecified (principal)
CPT/HCPCS: 82274

== ENCOUNTER 2021-01-24 13:59 | Outpatient (CLI) | payer MEDICARE, OTHER ==
[2021-01-24 18:15] LABS: BASOPHILS % (AUTO) 0.5 %; EOSINOPHILS # (AUTO) 0.2 10^3/uL (0.0-0.7); EOSINOPHILS % (AUTO) 2.7 %; HCT - HEMATOCRIT 42.6 % (42.0-52.0); HGB - HEMOGLOBIN 13.7 g/dL (14.0-18.0); LYMPHOCYTES # (AUTO) 1.6 10^3/uL (1.5-3.5); LYMPHOCYTES % (AUTO) 21.3 %; MEAN CORPUSCULAR HEMOGLOBIN 28.7 pg (27.0-31.0); MEAN CORPUSCULAR HGB CONC 32.2 g/dL (32.0-36.0); MEAN CORPUSCULAR VOLUME 89.1 fL (80.0-94.0); MEAN PLATELET VOLUME 11.1 fL (7.4-11.4); MONOCYTES # (AUTO) 0.7 10^3/uL (0.0-1.0); MONOCYTES % (AUTO) 8.7 %; NEUTROPHILS % (AUTO) 66.4 %; PLT - PLATELET COUNT 219 10^3/uL (130-450); RED BLOOD COUNT 4.78 10^6/uL (4.70-6.10); RED CELL DISTRIBUTION WIDTH 13.2 % (12.0-15.0); WHITE BLOOD COUNT 7.5 x10^3/uL (4.8-10.8)
[2021-01-24 18:31] LABS: ALBUMIN 3.9 g/dL (3.2-5.5); ALBUMIN/GLOBULIN RATIO 1.4 (1.0-2.2); ALKALINE PHOSPHATASE 90 IU/L (42-121); ALT ALANINE AMINOTRANSFERASE 53 IU/L (10-60); AST ASPARTATE AMINOTRANSFERASE 31 IU/L (10-42); BILIRUBIN,TOTAL 0.5 mg/dL (0.2-1.0); BUN - BLOOD UREA NITROGEN 14 mg/dL (6-20); CALCIUM 9.2 mg/dL (8.5-10.3); CARBON DIOXIDE - CO2 25 mmol/L (21-32); CHLORIDE 101 mmol/L (101-111); CHOL/HDL RATIO 4.5 (<5.0); CHOLESTEROL 143 mg/dL; GFR - MDRD 75 (>89); GLUCOSE 277 mg/dL (70-100); HDL CHOLESTEROL 32 mg/dL; IRON 45 ug/dL (45-182); LDL CHOLESTEROL,CALCULATED 34 mg/dL; LDL/HDL RATIO 1.1 (<3.6); POTASSIUM 4.3 mmol/L (3.5-5.0); SODIUM 137 mmol/L (135-145); TOTAL PROTEIN 6.7 g/dL (6.7-8.2); TRIGLYCERIDES 383 mg/dL; VLDL CHOLESTEROL 77 mg/dL
[2021-01-24 18:46] LABS: FERRITIN 101.6 ng/mL (23.9-336.2)
[2021-01-24 21:08] LABS: ESTIMATED AVERAGE GLUCOSE 169 mg/dL (70-100); HEMOGLOBIN A1c% 7.5 % (4.27-6.07)
== END 2021-01-24 23:59 | disposition home or self-care (01) ==
LOC: LAB.WCP 13:59
PROVIDERS: ATTEND Family Medicine
DX: E11.9 Type 2 diabetes mellitus without complications (principal); D64.9 Anemia, unspecified
CPT/HCPCS: 36415; 80053; 80061; 82607; 82728; 83036; 83540; 83721; 85025

== ENCOUNTER 2021-06-10 08:00 | Outpatient (CLI) | payer MEDICARE, OTHER ==
[2021-06-10 11:15] LABS: BASOPHILS # (AUTO) 0.1 10^3/uL (0.0-0.1); BASOPHILS % (AUTO) 0.7 %; EOSINOPHILS # (AUTO) 0.2 10^3/uL (0.0-0.7); EOSINOPHILS % (AUTO) 3.2 %; HCT - HEMATOCRIT 41.4 % (42.0-52.0); HGB - HEMOGLOBIN 13.5 g/dL (14.0-18.0); LYMPHOCYTES # (AUTO) 1.7 10^3/uL (1.5-3.5); LYMPHOCYTES % (AUTO) 23.8 %; MEAN CORPUSCULAR HEMOGLOBIN 28.5 pg (27.0-31.0); MEAN CORPUSCULAR HGB CONC 32.6 g/dL (32.0-36.0); MEAN CORPUSCULAR VOLUME 87.3 fL (80.0-94.0); MEAN PLATELET VOLUME 9.9 fL (7.4-11.4); MONOCYTES # (AUTO) 0.5 10^3/uL (0.0-1.0); MONOCYTES % (AUTO) 7.6 %; NEUTROPHILS # (AUTO) 4.5 10^3/uL (1.5-6.6); NEUTROPHILS % (AUTO) 64.4 %; PLT - PLATELET COUNT 280 10^3/uL (130-450); RED BLOOD COUNT 4.74 10^6/uL (4.70-6.10); RED CELL DISTRIBUTION WIDTH 13.1 % (12.0-15.0)
[2021-06-10 11:27] LABS: ALBUMIN/GLOBULIN RATIO 1.1 (1.0-2.2); BILIRUBIN,TOTAL 0.4 mg/dL (0.2-1.0); CALCIUM 9.2 mg/dL (8.5-10.3); POTASSIUM 3.5 mmol/L (3.5-5.0); TOTAL PROTEIN 7.7 g/dL (6.7-8.2)
== END 2021-06-10 08:01 | disposition home or self-care (01) ==
LOC: LAB.R 08:00
PROVIDERS: ATTEND Hospitalist
DX: I10 Essential (primary) hypertension (principal); E11.9 Type 2 diabetes mellitus without complications; Z91.81 History of falling; R60.9 Edema, unspecified
CPT/HCPCS: 80053; 85025

== ENCOUNTER 2021-11-25 12:19 | Outpatient (CLI) | payer MEDICARE, OTHER | END 2021-11-25 12:20 | disposition home or self-care (01) | LOC: RT 12:19 | PROVIDERS: ATTEND Nurse Practitioner Gerontology | DX: Z01.810 Encounter for preprocedural cardiovascular examination (principal) | CPT/HCPCS: 93005 ==

== ENCOUNTER 2022-03-29 09:55 | Outpatient (CLI) | payer MEDICARE, OTHER | END 2022-03-29 09:56 | disposition home or self-care (01) | LOC: RT 09:55 | PROVIDERS: ATTEND Nurse Practitioner Gerontology | DX: Z01.810 Encounter for preprocedural cardiovascular examination (principal); I10 Essential (primary) hypertension | CPT/HCPCS: 93005 ==

== ENCOUNTER 2022-05-22 08:55 | Outpatient (CLI) | payer MEDICARE, OTHER ==
--- NOTE | 2022-05-22 10:05 | CT Report ---
PROCEDURE: HEAD WO INDICATIONS: NPH, CEREBRAL VENTRICULOMEGALY TECHNIQUE: Noncontrast 4.5 mm thick angled axial sections acquired from the foramen magnum to the vertex. For r adiation dose reduction, the following was used: automated exposure control, adjustment of mA and/or kV according to patient size. COMPARISON: 09/24/2020. FINDINGS: Image quality: Excellent. CSF spaces: Basal cisterns are patent. No extra-axial fluid collections. Stable diffuse ventriculom egaly. Interval placement of a ventricular shunt catheter entering through a right frontal defect and coursing to the posterior left aspect of the third ventricle, adjacent to parenchyma. Brain: No midline shift. No intracranial masses or hemorrhage. Avelar-white matter interface is norm al. Age-related volume loss and small vessel ischemic change. Skull and face: Calvarium and visualized facial bones are intact, without suspicious lesions. Sinuses: Visualized sinuses and mastoids are clear. IMPRESSION: Stable ventriculomegaly. Ventriculostomy catheter now in place, the course of which is as described. Reviewed by: Josse Mendoza MD on 05/22/2022 10:03 AM PDT Approved by: Josse Mendoza MD on 05/22/2022 10:03 AM PDT Station ID: [id number]
== END 2022-05-22 08:56 | disposition home or self-care (01) ==
LOC: DI 08:55
PROVIDERS: ATTEND Neurological Surgery
DX: G91.2 (Idiopathic) normal pressure hydrocephalus (principal); G93.89 Other specified disorders of brain; Z98.2 Presence of cerebrospinal fluid drainage device